=== PATIENT | female | born 1950 | race Two or more races ===

== ENCOUNTER 2016-08-10 21:10 | Emergency (ER) | payer MEDICAID, OTHER ==
[2016-08-10] MEDS ORDERED: ACETAMINOPHEN 500 MG TABLET ONE (22:18)
[2016-08-10] MEDS ORDERED: PREDNISONE 10 MG TABLET ONE (22:18)
--- NOTE | 2016-08-11 07:34 | RAD ---
SHOULDER-RIGHT 2 OR MORE VIEWS COMPARISON: None. HISTORY: Right shoulder pain and right hand numbness. FINDINGS: Views: Right shoulder AP, Grashey, and scapular Y Bones: At the greater tuberosity humerus, erosions or degenerative cystic change. Joints: Clinical joint inferior osteophytes. Acromioclavicular joint severe narrowing, marginal osteophytes, and capsular hypertrophy with calcification. Soft tissues: Normal. IMPRESSION: 1. 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 2. Clinical joint mild osteoarthritis. 3. 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
== END 2016-08-10 23:24 | disposition home or self-care (01) ==
LOC: ED 21:10
DX: S43.421A Sprain of right rotator cuff capsule, initial encounter (principal); M25.511 Pain in right shoulder; E11.9 Type 2 diabetes mellitus without complications; I10 Essential (primary) hypertension; Z79.4 Long term (current) use of insulin; X58.XXXA Exposure to other specified factors, initial encounter; Y92.9 Unspecified place or not applicable